=== PATIENT | female | born 1935 | race Caucasian/White ===

== ENCOUNTER 2018-11-14 08:16 | Emergency (ER) | payer MEDICARE, OTHER ==
[2018-11-14 08:38] VITALS: BP 141/80
[2018-11-14] MEDS ORDERED: Ondansetron 4 MG/2 ML SDV IVPUSH ONE (08:51)
--- NOTE | 2018-11-14 09:15 | EDM.PDOC ---
ED HPI GENERAL MEDICAL PROBLEM - General Chief Complaint: Neurological Problem Stated Complaint: DIZZY/UNRESPONSIVE Time Seen by Provider: 11/14/18 08:29 Source of Information: Reports: Patient, Family (2 daughters), RN Notes Reviewed History Limitations: Reports: Other (Patient is a poor historian) - History of Present Illness INITIAL COMMENTS - FREE TEXT/NARRATIVE: The patient is a poor historian. According to the patient's daughters, the patient has suffered from dizziness on and off for the past 40 years. When asked if, by dizziness, the patient means lightheadedness or that the room is spinning, the patient responded lightheadedness, but she also states that she does not feel like she is going to pass out, and the patient's daughters stated that the patient often calls out that the room is spinning. When asked about this, the patient agreed, that when she feels dizzy, the room is spinning. She saw an ENT about 2 years ago, and was apparently referred to physical therapy, but did not go. She has been prescribed meclizine, which she has taken in the past, although did not take today. According to the patient's daughters, the 3 of them were heading to [place], and on their way there, the patient told them that she was feeling dizzy. Around the time they arrived to [place], the patient became unresponsive for about 1 minute, making a gurgling sound. According to the patient's daughters, this episode of unresponsiveness is new. From the patient's perspective, she recalls going to [place], then the next thing she recalls is her daughter's telling her that they were going to the ER. Here in the ED, the patient denies feeling dizzy, but is complaining of considerable nausea. After my initial history and physical exam, the patient's daughters pulled me aside to tell me that the patient has been taking CBD oil, that apparently contains THC, for chronic back pain, for the past month. She was given the oil by a friend of hers who . The patient did not want me to know that information. The patient's PCP is Dr. Shanda Vallecillo. - Related Data Allergies Allergy/AdvReac Type Severity Reaction Status Date / Time prednisone Allergy Cannot Verified 11/14/18 08:38 Remember Home Meds: Home Meds Levothyroxine 25 mcg PO DAILY 06/01/18 [History] Rosuvastatin [Crestor] 10 mg PO DAILY 12/18/17 [History] Ubidecarenone [Coq-10] 100 mg PO DAILY 12/18/17 [History] hydroCHLOROthiazide [Hydrochlorothiazide] 25 mg PO DAILY 12/18/17 [History] Acetaminophen [Tylenol] 650 mg PO Q4HR PRN 11/14/18 [History] Cholecalciferol (Vitamin D3) [Vitamin D3] 1,000 mg PO DAILY 11/14/18 [History] Methocarbamol 500 mg PO DAILY 11/14/18 [History] Ondansetron [Zofran ODT] 1 tab PO Q8H PRN #10 tab.dis 11/14/18 [Rx] Tumeric 500 mg PO DAILY 11/14/18 [History] Past Medical History HEENT History: Reports: Other (See Below) (BPPV) Cardiovascular History: Reports: High Cholesterol, Hypertension 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: Musculoskeletal History: Reports: Arthritis, Back Pain, Chronic Endocrine/Metabolic History: Reports: Hypothyroidism Oncologic (Cancer) History: Reports: Breast (left), Colon - Past Surgical History HEENT Surgical History: Reports: Cataract Surgery, Tonsillectomy Musculoskeletal Surgical History: Reports: Arthroscopic Procedure Oncologic Surgical History: Reports: Lumpectomy (left), Other (See Below) ( Hemicolectomy) Social & Family History - Family History Family Medical History: Noncontributory - Tobacco Use Smoking Status *Q: Never Smoker Second Hand Smoke Exposure: No - Caffeine Use Caffeine Use: Reports: Coffee - Alcohol Use Alcohol Use History: No - Recreational Drug Use Recreational Drug Use: No - Living Situation & Occupation Living situation: Reports: , Alone ( is in a senior living) Occupation: Retired ED ROS GENERAL - Review of Systems Review Of Systems: ROS reveals no pertinent complaints other than HPI. - Physical Exam Exam: See Below Exam Limited By: No Limitations General Appearance: Alert, WD/WN, Mild Distress (nauseated) Eye Exam: Bilateral Eye: EOMI, Normal Inspection Ears: Normal External Exam, Hearing Grossly Normal Nose: Normal Inspection Throat/Mouth: Normal Inspection, Normal Lips, Normal Voice, No Airway Compromise Head Exam: Atraumatic, Normocephalic Neck: Normal Inspection, Full Range of Motion Respiratory/Chest: No Respiratory Distress, Lungs Clear, Normal Breath Sounds, No Accessory Muscle Use Cardiovascular: Normal Peripheral Pulses, Regular Rate, Rhythm, No Gallop, No JVD, No Murmur, No Rub GI/Abdominal: Normal Bowel Sounds, Soft, Non-Tender, No Organomegaly, No Distention, No Abnormal Bruit, No Mass (Female) Exam: Deferred Rectal (Female) Exam: Deferred Neuro Exam (Abbreviated): Alert, Oriented, CN II-XII Intact, No Motor/Sensory Deficits Back Exam: Normal Inspection, Full Range of Motion, NT Extremities: Normal Inspection, Normal Range of Motion, Normal Capillary Refill Psychiatric: Normal Affect Skin Exam: Warm, Dry, Intact, Normal Color, No Rash EKG INTERPRETATION EKG Date: 11/14/18 Time: 09:36 Rhythm: NSR Rate (Beats/Min): 71 [place]: Normal P-Wave: Present QRS: Normal (Early transition) ST-T: Normal QT: Normal Comparison: NA - No Prior EKG Course - Vital Signs Last Recorded V/S: Last Vital Signs Temp 36.5 C 11/14/18 08:28 Pulse 84 11/14/18 08:28 Resp 15 11/14/18 08:28 BP 141/80 H 11/14/18 08:28 Pulse Ox 95 11/14/18 08:28 Orthostatic Blood Pressure [ 150/74 Standing] Orthostatic Blood Pressure [ 143/71 Sitting] Orthostatic Blood Pressure [ 131/58 Supine] - Orders/Labs/Meds Orders: Active Orders 24 hr Category Date Time Status EKG Documentation Completion [RC] STAT Care 11/14/18 09:09 Active Orthostatic Vital Signs [RC] STAT Care 11/14/18 09:08 Active Head wo Cont [CT] Stat Exams 11/14/18 10:54 Stop Req Labs: Laboratory Tests 11/14/18 11/14/18 11/14/18 Range/Units 09:20 09:20 09:45 WBC 7.45 (3.98-10.04) K/mm3 RBC 3.74 L (3.98-5.22) M/mm3 Hgb 11.9 (11.2-15.7) gm/L Hct 36.7 (34.1-44.9) % MCV 98.1 H (79.4-94.8) fl MCH 31.8 (25.6-32.2) pg MCHC 32.4 (32.2-35.5) g/dl RDW Std Deviation 47.7 H (36.4-46.3) fL Plt Count 206 (182-369) K/mm3 MPV 8.5 L (9.4-12.3) fl Neutrophils % (Manual) 59 (40-60) % Band Neutrophils % 0 (0-10) % Lymphocytes % (Manual) 33 (20-40) % Atypical Lymphs % 0 % Monocytes % (Manual) 8 (2-10) % Eosinophils % (Manual) 0 L (0.7-5.8) % Basophils % (Manual) 0 L (0.1-1.2) Platelet Estimate Adequate Hypochromasia 1+ slight RBC Morph Comment Abnormal Sodium 141 (136-145) mEq/L Potassium 4.1 (3.5-5.1) mEq/L Chloride 101 (98-107) mEq/L Carbon Dioxide 29 (21-32) mEq/L Anion Gap 15.1 H (5-15) BUN 32 H (7-18) mg/dL Creatinine 1.1 H (0.55-1.02) mg/dL Est Cr Clr Drug Dosing 26.86 mL/min Estimated GFR (MDRD) 47 (>60) mL/min BUN/Creatinine Ratio 29.1 H (14-18) Glucose 135 H (83-115) mg/dL Calcium 9.3 (8.5-10.1) mg/dL Magnesium 1.8 (1.8-2.4) mg/dl Total Bilirubin 0.3 (0.2-1.0) mg/dL AST 22 (15-37) U/L ALT 28 (14-59) U/L Alkaline Phosphatase 55 (46-116) U/L Troponin I < 0.017 (0.00-0.056) ng/mL Total Protein 7.2 (6.4-8.2) g/dl Albumin 3.6 (3.4-5.0) g/dl Globulin 3.6 gm/dL Albumin/Globulin Ratio 1.0 (1-2) Urine Color Yellow (Yellow) Urine Appearance Clear (Clear) Urine pH 6.5 (5.0-8.0) Ur Specific [place] 1.020 (1.005-1.030) Urine Protein Trace H (Negative) Urine Glucose (UA) Negative (Negative) Urine Ketones Negative (Negative) Urine Occult Blood Negative (Negative) Urine Nitrite Negative (Negative) Urine Bilirubin Negative (Negative) Urine Urobilinogen 0.2 (0.2-1.0) Ur Leukocyte Esterase Negative (Negative) Urine RBC 0-5 (0-5) /hpf Urine WBC 0-5 (0-5) /hpf Ur Epithelial Cells 0-5 (0-5) /hpf Urine Bacteria Few H (FEW) /hpf Hyaline Casts 5-10 H (0-5) /lpf Urine Mucus Few (FEW) /hpf Meds: Medications Discontinued Medications Generic Name Dose Route Start Last Admin Trade Name Freq PRN Reason Stop Dose Admin Ondansetron HCl 4 mg 11/14/18 08:51 11/14/18 09:23 Zofran IVPUSH 11/14/18 08:52 4 mg ONETIME ONE Administration - Re-Assessments/Exams Free Text/Narrative Re-Assessment/Exam: 11/14/18 09:19 Based on the patient's history, I suspect that the episode of syncope that she suffered earlier was vagal in reaction, likely related to vertigo that she was experiencing while in the car. Her neurologic exam here in the ED is completely normal, therefore an emergency CT scan of the head is not indicated. I have ordered orthostatics, blood work, a urinalysis, and an ECG. 11/14/18 10:03 The patient is not orthostatic, and I am told by The RN that the patient reported no change in her dizziness between lying and standing. 11/14/18 10:50 Test results discussed with the patient and her family. Today's workup is entirely unremarkable. Based on her history, physical exam, and ED tests, I suspect the patient suffered a vasovagal reaction related to her vertigo and nausea, although I explained that I cannot prove that, since her pulse was not checked at the time of her syncopal episode. Given her age, I offered to place the patient into observation, to monitor on telemetry. Initially, the patient declined, but her family talked her into it. Case then discussed with Dr. Galan at 10:48. He agreed to place the patient into observation, but wants the patient to undergo a CT scan of her head without contrast prior to her going to the floor. He is aware that the patient' s neurologic exam is normal. 11/14/18 11:08 The patient and her family changed their minds. They would prefer to have her go home. I will prescribe Zofran ODT. The patient already has meclizine at home. Departure - Departure Time of Disposition: 11:09 Disposition: Home, Self-Care 01 Condition: Good Clinical Impression: Vasovagal syncope, BPPV (benign paroxysmal positional vertigo) - Discharge Information *PRESCRIPTION DRUG MONITORING PROGRAM REVIEWED*: Not Applicable *COPY OF PRESCRIPTION DRUG MONITORING REPORT IN PATIENT [place]YLE[place]: Not Applicable Prescriptions: Ondansetron [Zofran ODT] 1 tab PO Q8H PRN #10 tab.dis PRN Reason: Nausea/Vomiting Instructions: Syncope, [id number] Referrals: Shanda Vallecillo MD [Primary Care Provider] - Additional Instructions: You were seen in the emergency room after passing out, after feeling dizzy and nauseated. Workup in the ER included blood work, a urinalysis, positional blood pressure checks, and an ECG. Your entire workup was unremarkable. You are not dehydrated. You are not anemic. No significant electrolyte abnormalities were found. You have not suffered a heart attack. You do not have a urinary tract infection. No abnormal heart rhythms were found. Based on your history, physical exam, and ER tests, the cause of your passing out was most likely due to a vasovagal reaction = slowing of your heart rate due to dizziness and nausea. Placement into observation was offered, but declined. Take your meclizine, one tablet up to every 8 hours, as needed for dizziness. A prescription for the anti-nausea medicine Zofran has been sent to the [facility] located [place] [address] [facility]. Dissolve one tablet of Zofran on your tongue up to every 8 hours, as needed for nausea/ vomiting. Follow-up with your PCP, Dr. Shanda Vallecillo, at your previously scheduled appointment this coming 11/16/2018. If any other problems, please do not hesitate to return to the ER. - My Orders Last 24 Hours: My Active Orders 11/14/18 09:08 Orthostatic Vital Signs [RC] STAT 11/14/18 09:09 EKG Documentation Completion [RC] STAT 11/14/18 10:54 Head wo Cont [CT] Stat - Assessment/Plan Last 24 Hours: My Active Orders 11/14/18 09:08 Orthostatic Vital Signs [RC] STAT 11/14/18 09:09 EKG Documentation Completion [RC] STAT 11/14/18 10:54 Head wo Cont [CT] Stat
== END 2018-11-14 11:31 | disposition home or self-care (01) ==
LOC: JD.ED 08:16
DX: R55 Syncope and collapse (principal); H81.10 Benign paroxysmal vertigo, unspecified ear; E03.9 Hypothyroidism, unspecified; Z79.899 Other long term (current) drug therapy; Z88.8 Allergy status to other drugs, medicaments and biological substances
CPT/HCPCS: 36415; 80053; 81001; 83735; 84484; 85007; 85027; 93005; 96374; 99284; J2405; 93010; 99283